=== PATIENT | female | born 1980 | race Caucasian/White ===

== ENCOUNTER 2017-05-02 20:25 | Emergency (ER) | payer SELFPAY ==
[~2017-05-02 20:25] MED LIST: CORTIS10A AS; DICL-86 PO
--- NOTE | 2017-05-02 22:33 | PD ---
HPI Chief Complaint Abdominal pain and recent history of parasitic infection in the stool and scan and drug use Date Seen: May 02, 2017 Time Seen: 22:00 Travel History International Travel<30 Days: No Contact w/Intl Traveler<30Days: No Known Affected Area: No History of Present Illness HPI Patient is 37-year-old white female A1 at 25 weeks who is no OB doctor here she just moved here from [place] several days ago and she did have care there. None of her records are here with her. She has a history of drug use is on methadone now. She's been having crampy lower abdominal pain recently and she noted in the house she moved from [place] had the some type of parasitic infection and she and her toddler daughter have now on infection she seeing alarms in her stool she seeing what she describes as parasites and her fingernails on her skin Weeks Gestation: 25 Para: 1 : 3 History Past Medical History Narrative Medical Parasitic infection possibly intestinal worms this is all according to the patient Obstetric History Obstetric History Previous for placenta previa Past Surgical History Narrative Surgical Social History Alcohol Use: Yes Tobacco Use: Yes Substance Abuse: Yes Allergies-Medications (Allergen,Severity, Reaction): Coded Allergies: cefaclor (Unverified Allergy, Severe, LACKEY ANIYA SYNDROME, 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) cephalexin (Unverified Allergy, Severe, LACKEY ANIYA SYNDROME, 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) Uncoded Allergies: "MYCINS" (Allergy, Severe, LACKEY ANIYA SYNDROME, 08/15/07) Home Meds Active Scripts Neomycin/Polymyxin/Hydrocort (Cortisporin Otic) 10 Ml Susp, 3 DROP QID, #1 0 Refills Prov:Rafa Pryor Jr, MD 08/15/07 Diclofenac Sod (Voltaren) 75 Mg Tabec, 75 MG PO BID, #20 0 Refills Prov:Rafa Pryor Jr, MD 08/15/07 Review of Systems General / Constitutional: No: Fever, Weight Gain, Chills, Other Eyes: No: Diploplia, Blurred Vision, Visual changes, Pain, Photophobia HENT: No: Headaches, Vertigo, Lightheadedness Cardiovascular: No: Irregular Rhythm, Chest Pain or Discomfort, Palpitations, Tachycardia, Syncope, Varicosities, Edema, Cyanosis Respiratory: No: Cough, Short of Breath, Other Gastrointestinal: Abdominal Pain, No: Nausea, Vomiting, Diarrhea Genitourinary: No: Decreased Urinary Output, Oliguria Musculoskeletal: No: Limited ROM, Weakness, Cramping, Edema, Pain Skin: No Rash, No Itching, No Dryness, No Lumps, No Change in Pigmentation, No Change in Nails, No Alopecia, No Lesions Neurologic: No: Weakness, Dizziness, Syncope, Focal Abnormalities, Coordination Problem, Headache, Slurred Speech, Seizures Psychiatric: No: Depression, Suicidal Ideations, Homicidal Ideation Endocrine: No: Heat Intolerance, Cold Intolerance, Polydipsia, Polyuria, Other Physical Exam Narrative GENERAL: Well-nourished, well-developed patient. SKIN: Warm and dry. HEAD: Normocephalic and atraumatic. EYES: No scleral icterus. No injection or drainage. ENT: No nasal drainage noted. Mucous membranes pink. Airway patent. NECK: Supple, trachea midline. No JVD. CARDIOVASCULAR: Regular rate and rhythm without murmurs, gallops, or rubs. RESPIRATORY: Breath sounds equal bilaterally. No accessory muscle use. BREASTS: Bilateral exam showed no masses , no retractions, no nipple discharge. ABDOMEN/GI: Abdomen soft, non-tender, bowel sounds present, no rebound, no guarding Gravid to [-25] weeks size Fundal Height: [25-] GENITOURINARY: External Genitalia: intact and normal in appearance spec- negative no D/C ,blood , lesion Cervix: [Closed-] Dilatation: [Closed-] Effacement: [-Thick] Station: [-3] Presentation: [vtx-] Membranes: [intact ] Uterine Contractions: [none-] FHT's: Category: [1-] Baseline: [-133] Reactive: [yes-] Variability: [mod-] Decels: [0-] EXTREMITIES: No cyanosis or edema. BACK: Nontender without obvious deformity. No CVA tenderness. NEUROLOGICAL: Awake and alert. Motor and sensory grossly within normal limits. Five out of 5 muscle strength in all muscle groups. Normal speech. MDM Interpretation(s) Patient is 37-year-old white female previous 1 at 25 weeks who just recently moved here from [place]. She has no doctor as of yet. s He complains of some lower abdominal pain, denies bleeding or leakage of fluid. She complains of some type of parasitic infection that she describes in herself and her daughter that originated from the previous house they were living in [place]. She seen worms in her stool and puneet stool , she is not dell at this time heart rate tracing is reactive for 25 weeks. The patient has a history of placenta previa with her last and also with this only ultrasound tonight appears to be a placenta previa grade 2 features, ultrasound done shows a vertex fetus 25 weeks size with estimated weight is 771 g, basic anatomy scan within normal limits normal amniotic fluid, and the placenta that appears to be a placenta previa, the patient's had no bleeding and on speculum exam there is no blood noted cervix is closed and high Plan Plan for this patient is to get her into care and to see maternal medicine regarding her placenta previa and need for repeat , I suggested she get transferred back to the main emergency room for evaluation of any parasitic infection she did not want to do that she is wanted to wait call try get in with an infectious disease person in the daytime hours Diagnosis Diagnosis: Primary Impression: 25 weeks gestation of Additional Impressions: Abdominal pain during in second trimester Placenta previa antepartum in second trimester Disposition: 01 DISCHARGE HOME Condition: Stable Davide Schneider II, MD May 02, 2017 22:33
[2017-05-02 23:31] LABS: BACTERIA, URINE RARE /hpf; BLOOD, URINE NEG (NEG); GLUCOSE,URINE NEG (NEG); KETONE, URINE NEG (NEG); MUCUS URINE FEW /lpf (OCC); NITRITE,URINE NEG (NEG); RENAL EPITHELIAL CELLS 1 /hpf; SQUAMOUS EPITHELIAL CELL URINE 6 /hpf (0-5); TRANSITIONAL EPI CELLS, URINE <1 /hpf; URINE COLOR YELLOW (YELLW/STRAW)
[2017-05-02 23:32] LABS: COMMENT (UR) CULTURE INDICATED; CULTURE IF INDICATED CULTURE INDICATED
== END 2017-05-02 22:50 | disposition home or self-care (01) ==
LOC: HOBED 20:25
DX: O44.02 Complete placenta previa NOS or without hemorrhage, second trimester (principal); O26.892 Other specified pregnancy related conditions, second trimester; R10.30 Lower abdominal pain, unspecified; Z3A.25 25 weeks gestation of pregnancy
CPT/HCPCS: 76815; 81001; 86403; 87086; 87186